=== PATIENT | male | born 1975 | race Caucasian/White ===

== ENCOUNTER 2025-06-05 23:22 | Emergency (ER) | payer MEDICAID ==
[~2025-06-05] VITALS: Ht 167.6 cm; Wt 77.0 kg
[2025-06-05 23:33] VITALS: BP 149/86; PULSE 98; RESP 16; TEMP 36.7; O2SAT 98
== END 2025-06-06 00:49 | disposition left against medical advice (07) ==
LOC: ER 23:22
DX: S09.8XXA Other specified injuries of head, initial encounter (principal); Z53.21 Procedure and treatment not carried out due to patient leaving prior to being seen by health care provider; Y08.89XA Assault by other specified means, initial encounter; Y93.89 Activity, other specified; Y92.89 Other specified places as the place of occurrence of the external cause; Y99.8 Other external cause status

== ENCOUNTER 2025-06-06 01:48 | Emergency (ER) | payer MEDICAID ==
[~2025-06-06] VITALS: Ht 170.2 cm; Wt 100.3 kg
[2025-06-06 01:59] VITALS: O2SAT 99
[2025-06-06] MEDS: TETANUS, DIPHTHERIA, PERTUSSIS VAC/PF 0.5ML (>10YR OLD) IM ONE (03:40)
[2025-06-06] MEDS: ACETAMINOPHEN 500MG TABLET PO ONE (03:40)
[2025-06-06 05:07] VITALS: TEMP 36.5; O2SAT 98
[2025-06-06 05:12] VITALS: BP 138/80; PULSE 79; RESP 16
[2025-06-06] MEDS: IBUPROFEN 600MG TABLET PO ONE (05:12)
== END 2025-06-06 05:15 | disposition home or self-care (01) ==
LOC: ER 01:48
DX: S01.01XA Laceration without foreign body of scalp, initial encounter (principal); J45.909 Unspecified asthma, uncomplicated; W22.8XXA Striking against or struck by other objects, initial encounter; Y93.89 Activity, other specified; Y92.89 Other specified places as the place of occurrence of the external cause; Y99.8 Other external cause status
CPT/HCPCS: 70450; 90715; 12001; 90471; 99285; Z7610 ×2